=== PATIENT | male | born 1940 | race African-American/Black ===

== ENCOUNTER 2021-10-16 18:43 | Inpatient (IN) | payer MEDICARE, MEDICAID ==
[~2021-10-16] VITALS: Ht 182.9 cm; Wt 75.6 kg
[~2021-10-16 18:43] MED LIST: ACET325T9 PO; ACET325T9 RC; AMLO10TA4 PO; BISA10SU55 RC; CEPH-264 PO; DOCU-109 PO; FOLI1TAB16 PO; GUAI118L3 PO; HALO5TAB PO; MAGN400O7 PO; OXYC5CAP PO; POLY17PO29 PO; SENN-182 PO; THIA100T8 PO; TRAZ-118 PO
--- NOTE | 2021-10-16 18:48 | PHYS DOC ---
Past Medical History Past Medical History: Alcoholism, Dementia, Diabetes-Type II, Hypertension, Other Additional Past Medical Histor: INSOMNIA, vascular problem Past Surgical History: TURP, Other Additional Past Surgical Histo: hernia repair Smoking Status: Current Every Day Smoker Alcohol Use: Sober Drug Use: None, Other (former drug use) General Adult EDM: Chief Complaint: SYNCOPE HPI: HPI: Patient is a 80 year old male brought in by EMS from [facility] for reported episode of unresponsiveness or syncope. I am unable to procure any significantly detailed information from the patient directly. Review of systems is limited secondary to this. I spoke with the nurse at the care facility, she reports that she was helping feed him tonight, and she reports that he "became unresponsive" and appeared to fall asleep, but was still breathing, no cyanosis or apneic episodes, vital signs are stable. She reports that she had a sternal rub him to awaken him. She reports that he is normally quite loud and often yells, though he has been more calm and seemingly more sedated or sleepy recently. She reports that she believes the patient has "given up" in the last several weeks because his daughter recently within the last few weeks. No reported fall or head injury. No witnessed seizure activity. He is normally very confused at baseline. He has a cognitive deficit and speech deficit, at baseline. No known previous history of any cardiac issues or known previous CVA. He is on multiple medications, sedating medications and psychotropic medications. He had not received any as needed sedatives tonight reportedly. Complaint is that he feels like his feet are hurting him, but he admits that this is not new and has been chronic. He denies chest pain, shortness of breath, headache. He denies abdominal pain or nausea or vomiting symptoms. Review of Systems: Review of Systems: Markedly limited review of systems secondary to chronic clinical conditions, see HPI for details. Heart Score: C/O Chest Pain: No Risk Factors: Risk Factors: DM, Current or recent (<one month) smoker, HTN, HLP, family history of CAD, obesity. Risk Scores: Score 0 - 3: 2.5% MACE over next 6 weeks - Discharge Home Score 4 - 6: 20.3% MACE over next 6 weeks - Admit for Clinical Observation Score 7 - 10: 72.7% MACE over next 6 weeks - Early Invasive Strategies Allergies: Allergies: Allergies Coded Allergies Type Severity Reaction Last Updated Verified ibuprofen Allergy Mild GI upset 04/22/14 Yes Physical Exam: PE: Constitutional: Frail, chronically ill-appearing male, resting comfortably, no acute distress. HENT: Normocephalic, atraumatic, oropharynx is patent and clear. No evidence of facial injury or trauma. Mucous membranes are moist. Gag reflex intact. External ears are normal bilaterally. TMs are clear bilaterally. Nares are patent clear without rhinorrhea epistaxis. Eyes: Pupils are small but equal. No scleral icterus. EOMI. no nystagmus. Neck: Normal range of motion, no tenderness, supple, no stridor. Trachea is midline. No meningismus. No step off or midline tenderness. Cardiovascular:Heart rate regular rhythm, +2 radial and +2 dorsalis pedis pulses bilaterally. Lungs & Thorax: Bilateral breath sounds clear to auscultation, no rales, rhonchi or wheezes. Equal chest rise. No distress Abdomen: Abdomen is soft, nondistended, nontender to palpation. No palpable pulsatile mass. No evidence of abdominal trauma or ecchymoses. Skin: Warm, dry, no erythema, no rash. Skin is dry, relatively poor skin turgor. No open wounds. No jaundice Back: Limited range of motion, kyphosis, no deformity. Extremities: No acute limb deformity. No edema. Pelvis is stable. He appears to have bilateral upper and lower extremity flexion contractures. Limited range of motion. No bony tenderness. No evidence of any acute trauma or injury. Neurologic: He is slightly sleepy but awakens easily, opens eyes spontaneously, localizes to pain, no facial asymmetry, speech is slow, content is limited, sensation appears to be grossly intact, he moves all 4 extremities equally, but he does manifest generalized, nonfocal motor weakness in bilateral upper and lower extremities, symmetric flexion contractures. Psychologic: Affect is flat. EKG: EKG: EKG is interpreted at 1956 Rhythm is sinus tachycardia Rate is 102 bpm [place] is left low voltage artifact No STEMI Radiology/Procedures: Radiology/Procedures: IMAGING REPORT Signed PATIENT: NEVIN SHEPARD ACCOUNT: [id number] : 1940 LOCATION: ER AGE: 80 SEX: M EXAM STATUS: PRE ER ORD. PHYSICIAN: EMMA FIGUEROA DO REASON: syncope PROCEDURE: CT HEAD AND CERVICAL SPINE WO CT HEAD AND C-SPINE WO History: Reason: syncope / Spl. Instructions: / History: Comparison: March 10, [address] The cervical spine CT June 19, 2015 Technique: Noncontrast CT imaging was performed of the head and cervical spine. Coronal and sagittal reconstructions were performed. Exposure: One or more of the following individualized dose reduction techniques were utilized for this examination: 1. Automated exposure control 2. Adjustment of the mA and/or kV according to patient size 3. Use of iterative reconstruction technique. Findings: Motion degraded evaluation. Head CT: No intracranial hemorrhage. No mass effect. No hydrocephalus. Moderate brain parenchymal volume loss. Moderate foci of decreased attenuation within the hemispheric white matter, most often due to chronic microvascular ischemia, progressed compared to 2016. Imaged orbits are unremarkable. Imaged paranasal sinuses and mastoid air cells are clear. No acute calvarial fracture. Cervical spine CT: Motion degraded evaluation. Straightening of the cervical spine. No definite acute fracture although motion degrades evaluation for dominant within the lower cervical and upper thoracic spine. 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 Moderate degenerative disc changes most prominent C3-C4 and C4-C5. Moderate canal narrowing C3-C4 and C4-C5 as well as C5-C6. Multilevel neuroforaminal narrowing. Soft tissues unremarkable. Impression: Head CT: 1. Motion degraded evaluation. No definite acute intracranial abnormality. 2. Moderate brain parenchymal volume loss and sequela of chronic microvascular ischemia progressed compared to 2016. Cervical spine CT: 1. Motion degraded evaluation. No definite acute fracture or subluxation of the cervical spine. If persistent clinical concern, recommend repeat imaging. 2. Moderate cervical spondylosis with moderate canal narrowing. 3. Multilevel neuroforaminal narrowing. Electronically signed by: Werner Fontanez DO (10/16/2021 7:38 PM) [facility] DICTATED and SIGNED BY: WERNER FONTANEZ DO DATE: 10/16/211929 IMAGING REPORT Signed PATIENT: NEVIN SHEPARD ACCOUNT: [id number] : 1940 LOCATION: ER AGE: 80 SEX: M EXAM STATUS: PRE ER ORD. PHYSICIAN: EMMA FIGUEROA DO REASON: syncope PROCEDURE: PORTABLE CHEST 1V XR CHEST 1V History: Reason: syncope / Spl. Instructions: / History: Comparison: March 10, 2016 Findings: No consolidation or pleural effusion. Normal heart size. No pneumothorax. Glenohumeral DJD. Impression: 1. No acute cardiopulmonary process. Electronically signed by: Werner Fontanez DO (10/16/2021 7:57 PM) [facility] DICTATED and SIGNED BY: WERNER FONTANEZ DO DATE: 10/16/211955 Course & Med Decision Making: Course & Med Decision Making Pertinent Labs and Imaging studies reviewed. (See chart for details) The findings, differential diagnosis and plan of care discussed with the tejal ent. I tried to call next of kin that was listed on his paperwork, no answer. The patient is given IV Rocephin for treatment of urinary tract infection. I have recommended hospitalization. The patient is comfortable with this. He is resting comfortably, manifest no evidence of distress, has no active complaints at this time. He is accepted for admission by Dr. Prieto. Juan Carlos Disclaimer: Juan Carlos Disclaimer: This electronic medical record was generated, in whole or in part, using a voice recognition dictation system. Departure Departure Impression: Primary Impression: Syncope Additional Impressions: Generalized weakness Urinary tract infection Dementia Disposition: ADMITTED INPATIENT Admitting Physician: PACO (Dr. Prieto) Condition: GUARDED Referrals: KARL JONES MD (PCP) EMMA FIGUEROA DO Oct 16, 2021 18:48
--- NOTE | 2021-10-16 19:40 | RAD ---
CT HEAD AND C-SPINE WO History: Reason: syncope / Spl. Instructions: / History: Comparison: March 10, [address] The cervical spine CT June 19, 2015 Technique: Noncontrast CT imaging was performed of the head and cervical spine. Coronal and sagittal reconstructions were performed. Exposure: One or more of the following individualized dose reduction techniques were utilized for thi s examination: 1. Automated exposure control 2. Adjustment of the mA and/or kV according to patient size 3. Use of iterative reconstruction technique. Findings: Motion degraded evaluation. Head CT: No intracranial hemorrhage. No mass effect. No hydrocephalus. Moderate brain parenchymal volume loss. Moderate foci of decreased attenuation within the hemispheric white matter, most often due to chronic microvascular ischemia, progressed compared to 2016. Imaged orbits are unremarkable. Imaged paranasal sinuses and mastoid air cells are clear. No acute ca lvarial fracture. Cervical spine CT: Motion degraded evaluation. Straightening of the cervical spine. No definite acute fracture although motion degrades evaluation f or dominant within the lower cervical and upper thoracic spine. 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 Moderate degenerative disc changes most prominent C3-C4 a nd C4-C5. Moderate canal narrowing C3-C4 and C4-C5 as well as C5-C6. Multilevel neuroforaminal narrow ing. Soft tissues unremarkable. Impression: Head CT: 1. Motion degraded evaluation. No definite acute intracranial abnormality. 2. Moderate brain parenchymal volume loss and sequela of chronic microvascular ischemia progressed c ompared to 2016. Cervical spine CT: 1. Motion degraded evaluation. No definite acute fracture or subluxation of the cervical spine. If p ersistent clinical concern, recommend repeat imaging. 2. Moderate cervical spondylosis with moderate canal narrowing. 3. Multilevel neuroforaminal narrowing. Electronically signed by: Werner Fontanez DO (10/16/2021 7:38 PM) [facility]
--- NOTE | 2021-10-16 19:59 | RAD ---
XR CHEST 1V History: Reason: syncope / Spl. Instructions: / History: Comparison: March 10, 2016 Findings: No consolidation or pleural effusion. Normal heart size. No pneumothorax. Glenohumeral DJD. Impression: 1. No acute cardiopulmonary process. Electronically signed by: Werner Fontanez DO (10/16/2021 7:57 PM) [facility] [place]
[2021-10-16 20:24] LABS: BASO % 1 % (0-3); EOS # 0.1 x10^3/uL (0.0-0.7); EOS % 1 % (0-3); HEMATOCRIT 36.8 % (39.0-53.0); LYMPH # 2.6 x10^3/uL (1.0-4.8); LYMPH % 42 % (24-48); MEAN CORPUSCULAR HEMOGLOBIN 29 pg (25-35); MEAN CORPUSCULAR HGB CONC 33 g/dL (31-37); MEAN CORPUSCULAR VOLUME 88 fL (79-100); MONO # 0.5 x10^3/uL (0.0-1.1); MONO % 7 % (0-9); NEUT % 49 % (31-73); PLATELET COUNT 120 x10^3/uL (140-400); RED BLOOD COUNT 4.19 x10^6/uL (4.30-5.70); RED CELL DISTRIBUTION WIDTH 14.8 % (11.5-14.5); WHITE BLOOD COUNT 6.2 x10^3/uL (4.0-11.0)
[2021-10-16 20:36] LABS: ANION GAP 9 (6-14); BLOOD UREA NITROGEN 23 mg/dL (8-26); BUN/CREATININE RATIO 16 (6-20); CALCIUM 9.2 mg/dL (8.5-10.1); CARBON DIOXIDE 28 mmol/L (21-32); CHLORIDE 100 mmol/L (98-107); CREATININE 1.4 mg/dL (0.7-1.3); GFR 58.9; GLUCOSE 180 mg/dL (70-99); POTASSIUM 3.7 mmol/L (3.5-5.1); SODIUM 137 mmol/L (136-145)
[2021-10-16 20:44] LABS: BILIRUBIN,URINE NEGATIVE (NEG); CLARITY,URINE HAZY; COLOR,URINE YELLOW; NITRITE,URINE NEGATIVE (NEG); PH,URINE 6.5 (<5.0-8.0); PROTEIN,URINE TRACE mg/dL (NEG-TRACE); UROBILINOGEN,URINE 0.2 mg/dL (0.2 mg/dL)
[2021-10-16 20:46] LABS: ALBUMIN 3.4 g/dL (3.4-5.0); TOTAL PROTEIN 9.2 g/dL (6.4-8.2)
[2021-10-16 20:47] LABS: BACTERIA,URINE FEW /HPF (0-FEW); WBC,URINE 20-40 /HPF (0-4)
[2021-10-16 20:47] LABS: ALBUMIN/GLOBULIN RATIO 0.6 (1.0-1.7); ALK PHOS 92 U/L (46-116); ALT (SGPT) 19 U/L (16-63); AST (SGOT) 26 U/L (15-37); CREATINE KINASE 393 U/L (39-308); MAGNESIUM 1.9 mg/dL (1.8-2.4); TOTAL BILIRUBIN 0.3 mg/dL (0.2-1.0)
[2021-10-16 20:50] LABS: AMPHETAMINE/METHAMPHETAMINE NEG (NEG); BARBITURATES NEG (NEG); BENZODIAZEPINES NEG (NEG); CANNABINOIDS NEG (NEG); COCAINE NEG (NEG); METHADONE NEG (NEG); OPIATES NEG (NEG); PHENCYCLIDINE NEG (NEG)
--- NOTE | 2021-10-16 20:59 | EKG ---
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
[2021-10-16] MEDS ORDERED: cefTRIAXone IV Push 1 GM VIAL. IVP ONE (21:00)
[2021-10-16] MEDS ORDERED: IV NORMAL SALINE 1000ML BAG 1,000 ML IV ONE ×2 (21:15→22:15)
[2021-10-16 21:38] LABS: VAL ACID 144 mcg/mL (50-100)
[2021-10-16] MEDS ORDERED: ACETAMINOPHEN 325 MG TABLET. PO PRN (22:15)
[2021-10-16] MEDS ORDERED: ONDANSETRON PF 4 MG/2 ML VIAL. IVP PRN (22:15)
[2021-10-16 23:38] VITALS: BP 125/68
[2021-10-17] VITALS (7 sets, daily range): BP systolic 108–127; BP diastolic 60–80
[2021-10-17] MEDS ORDERED: MULT-245 PO (01:01)
[2021-10-17] MEDS ORDERED: LORA-434 PO (01:01)
[2021-10-17] MEDS ORDERED: RIVA3CAP15 PO (01:01)
[2021-10-17] MEDS ORDERED: MELA5TAB20 PO (01:01)
[2021-10-17] MEDS ORDERED: MAGN400O7 PO (01:01)
[2021-10-17] MEDS ORDERED: ACET325T21 PO (01:01)
[2021-10-17] MEDS ORDERED: ASCO500C PO (01:01)
[2021-10-17] MEDS ORDERED: RISP1TAB43 PO (01:01)
[2021-10-17] MEDS ORDERED: MAGN400T48 PO (01:01)
[2021-10-17] MEDS ORDERED: ASPI-630 PO (01:01)
[2021-10-17] MEDS ORDERED: OMEP20CA16 PO (01:01)
[2021-10-17] MEDS ORDERED: DIVA125C2 PO (01:01)
[2021-10-17] MEDS ORDERED: HYDR12.58 PO (01:01)
[2021-10-17] MEDS ORDERED: FERR220S16 PO (01:01)
[2021-10-17] MEDS ORDERED: ATOR40TA59 PO (01:01)
[2021-10-17] MEDS ORDERED: POLY17PO29 PO (01:01)
[2021-10-17] MEDS ORDERED: NAPR-683 PO (01:01)
[2021-10-17] MEDS ORDERED: DULO30CA2 PO (01:01)
[2021-10-17] MEDS ORDERED: SENN1TAB62 PO (01:01)
[2021-10-17] MEDS ORDERED: TAMS0.4C97 PO (01:01)
[2021-10-17] MEDS ORDERED: DEXTROSE 50% 25 GM / 50ML DISP.SYRIN. IV PRN (08:00)
[2021-10-17] MEDS ORDERED: SENNOSIDES 8.6 MG TABLET PO PRN (08:00)
[2021-10-17] MEDS ORDERED: ONDANSETRON PF 4 MG/2 ML VIAL. IVP PRN (08:00)
[2021-10-17] MEDS ORDERED: diphenhydrAMINE 50 MG/ML VIAL IVP PRN (08:00)
[2021-10-17] MEDS ORDERED: LORazepam 0.5 MG TABLET PO PRN (08:00)
[2021-10-17] MEDS ORDERED: PROCHLORPERAZINE 10 MG/2 ML VIAL. IV PRN (08:00)
[2021-10-17] MEDS ORDERED: DOCUSATE SODIUM 100 MG CAPSULE. PO PRN (08:00)
[2021-10-17] MEDS ORDERED: ACETAMINOPHEN 325 MG TABLET. PO PRN (08:00)
[2021-10-17] MEDS ORDERED: ZOLPIDEM 5 MG TABLET. PO PRN (08:00)
[2021-10-17] MEDS ORDERED: diphenhydrAMINE HCL 25 MG CAPSULE PO PRN ×2 (08:00)
--- NOTE | 2021-10-17 08:07 | PDOC1 ---
History and Physical Date of Service: DOS: DATE: 10/17/21 TIME: 07:57 Chief Complaint: Chief Complain: Altered mental status. History of Present Illness: HPI: History obtained from discussion with the ED physician and chart review 80 year old male brought in by EMS from [facility] for reported episode of unresponsiveness or syncope. I am unable to procure any significantly detailed information from the patient directly. Review of systems is limited secondary to this. I spoke with the nurse at the care facility, she reports that she was helping feed him tonight, and she reports that he "became unresponsive" and appeared to fall asleep, but was still breathing, no cyanosis or apneic episodes, vital signs are stable. She reports that she had a sternal rub him to awaken him. She reports that he is normally quite loud and often yells, though he has been more calm and seemingly more sedated or sleepy recently. She reports that she believes the patient has "given up" in the last several weeks because his daughter recently within the last few weeks. No reported fall or head injury. No witnessed seizure activity. He is normally very confused at baseline. He has a cognitive deficit and speech deficit, at baseline. No known previous history of any cardiac issues or known previous CVA. He is on multiple medications, sedating medications and psychotropic medications. He had not received any as needed sedatives tonight reportedly. Complaint is that he feels like his feet are hurting him, but he admits that this is not new and has been chronic. He denies chest pain, shortness of breath, headache. He denies abdominal pain or nausea or vomiting symptoms. EKG shows sinus tachycardia at 102 bpm with left axis deviation. No acute ST elevations or depressions. Past Medical/Surgical History: PMH/PSH: Past Medical History: Alcoholism, Dementia, Diabetes-Type II, Hypertension, INSOMNIA, vascular problem Past Surgical History: TURP,hernia repair Allergies: Allergies: Coded Allergies: ibuprofen (Verified Adverse Reaction, Mild, GI upset, 10/17/21) Family History: Family History: Reviewed with no relevant findings in the chart Social History: Social History: Smoking Status: Current Every Day Smoker Alcohol Use: Sober Drug Use: None, Other (former drug use) Current Medications: Current Medications Current Medications Lorazepam (Ativan Inj) 0.5 mg 1X ONCE IVP Last administered on 10/16/21at 20:09; Start 10/16/21 at 20:15; Stop 10/16/21 at 20:16; Status DC Ceftriaxone Sodium (Rocephin) 1 gm 1X ONCE IVP Last administered on 10/16/21at 21:07; Start 10/16/21 at 21:00; Stop 10/16/21 at 21:01; Status DC Sodium Chloride 1,000 ml @ 1,000 mls/hr 1X ONCE IV Last administered on 10/16/21at 21:08; Start 10/16/21 at 21:15; Stop 10/16/21 at 22:14; Status DC Ondansetron HCl (Zofran) 4 mg PRN Q8HRS PRN IVP NAUSEA/VOMITING; Start 10/16/21 at 22:15; Stop 10/17/21 at 22:14 Sodium Chloride 1,000 ml @ 75 mls/hr 1X ONCE IV Last administered on 10/16/21at 23:57; Start 10/16/21 at 22:15; Stop 10/17/21 at 11:34 Acetaminophen (Tylenol) 650 mg PRN Q4HRS PRN PO pain or fever; Start 10/16/21 at 22:15 Active Scripts Active Reported Milk Of Magnesia (Magnesium Hydroxide) 400 Mg/5 Ml Oral.susp 30 Ml PO DAILY PRN Acetaminophen 325 Mg Tablet 2 Tab PO TID 30 Days Miralax (Polyethylene Glycol 3350) 17 Gm Powd.pack 1 Packet PO BID 2 Days dissolve in water Senna Plus Tablet (Sennosides/Docusate Sodium) 1 Each Tablet 1 Tab PO BID 20 Days Magnesium Oxide 400 Mg Tablet 1 Tab PO BID Melatonin 5 Mg Tab.rapdis 1 Tab PO QHS 30 Days Atorvastatin Calcium 40 Mg Tablet 80 Mg PO HS Vitamin C (Ascorbic Acid) 500 Mg Capsule.er 1 Cap PO DAILY 30 Days Flomax (Tamsulosin Hcl) 0.4 Mg Cap.er.24h 1 Cap PO DAILY Multi Vitamin Daily (Multivitamin) 1 Each Tablet 1 Tab PO DAILY 30 Days Ativan (Lorazepam) 1 Mg Tablet 1 Mg PO TID Depakote Sprinkle (Divalproex Sodium) 125 Mg Cap.sprink 4 Cap.sprink PO TID Naprosyn (Naproxen) 500 Mg Tablet 500 Mg PO BID PRN Omeprazole 20 Mg Capsule. 1 Cap PO DAILY Cymbalta (Duloxetine Hcl) 30 Mg Capsule.dr 1 Cap PO DAILY Risperdal (Risperidone) 1 Mg Tablet 1 Mg PO BID Hydrochlorothiazide Tablet (Hydrochlorothiazide) 12.5 Mg Tablet 12.5 Mg PO DAILY HOLD if SBP < 110 Rivastigmine (Rivastigmine Tartrate) 3 Mg Capsule 3 Mg PO BID Aspirin 81 Mg Tab.chew 1 Tab PO DAILY Ferrous Sulfate 220 Mg/5 Ml Solution 7.4 Ml PO DAILY 30 Days ROS: Review of Systems Review of System REVIEW OF SYSTEMS: Limited due to altered mental status Physical Exam: Vital Signs: Vital Signs Date Time Temp Pulse Resp B/P (MAP) Pulse Ox O2 Delivery O2 Flow Rate FiO2 10/17/21 02:40 97.4 76 17 112/62 (79) 98 Room Air 97.4 Physcial Exam: General: Frail, chronically ill-appearing male, resting comfortably, no acute distress. HEENT: Pupils equally round and reactive to light, EOMI, no discharge, normal conjunctiva Neck: Supple, no nuchal rigidity, no JVD, trachea midline, no tenderness Cardiac: RRR, no murmurs, no gallops, no rubs Chest/Lungs: CTAB, no wheeze, no rhonchi, no crackles Abdomen: soft, non-distended, no guarding, no peritoneal signs, non-tender Back: No tenderness Extremities: no edema, pulses intact, non-tender,capillary refill <3 sec bilateral upper and lower extremities, Neuro: Alert and awake but sleepy. No focal deficits. Moves all 4 extremities equally. Nonfocal motor weakness in bilateral upper and lower extremities. Symmetric flexion contraction. Labs: Labs: Laboratory Tests Test 10/16/21 18:15 10/16/21 19:53 10/16/21 20:30 10/17/21 00:45 White Blood Count 6.2 x10^3/uL (4.0-11.0) Red Blood Count 4.19 x10^6/uL (4.30-5.70) Hemoglobin 12.0 g/dL (13.0-17.5) Hematocrit 36.8 % (39.0-53.0) Mean Corpuscular Volume 88 fL (79-100) Mean Corpuscular Hemoglobin 29 pg (25-35) Mean Corpuscular Hemoglobin Concent 33 g/dL (31-37) Red Cell Distribution Width 14.8 % (11.5-14.5) Platelet Count 120 x10^3/uL (140-400) Neutrophils (%) (Auto) 49 % (31-73) Lymphocytes (%) (Auto) 42 % (24-48) Monocytes (%) (Auto) 7 % (0-9) Eosinophils (%) (Auto) 1 % (0-3) Basophils (%) (Auto) 1 % (0-3) Neutrophils # (Auto) 3.0 x10^3/uL (1.8-7.7) Lymphocytes # (Auto) 2.6 x10^3/uL (1.0-4.8) Monocytes # (Auto) 0.5 x10^3/uL (0.0-1.1) Eosinophils # (Auto) 0.1 x10^3/uL (0.0-0.7) Basophils # (Auto) 0.0 x10^3/uL (0.0-0.2) Sodium Level 137 mmol/L (136-145) Potassium Level 3.7 mmol/L (3.5-5.1) Chloride Level 100 mmol/L (98-107) Carbon Dioxide Level 28 mmol/L (21-32) Anion Gap 9 (6-14) Blood Urea Nitrogen 23 mg/dL (8-26) Creatinine 1.4 mg/dL (0.7-1.3) Estimated GFR (Cockcroft-Gault) 58.9 BUN/Creatinine Ratio 16 (6-20) Glucose Level 180 mg/dL (70-99) Calcium Level 9.2 mg/dL (8.5-10.1) Magnesium Level 1.9 mg/dL (1.8-2.4) Total Bilirubin 0.3 mg/dL (0.2-1.0) Aspartate Amino Transf (AST/SGOT) 26 U/L (15-37) Alanine Aminotransferase (ALT/SGPT) 19 U/L (16-63) Alkaline Phosphatase 92 U/L (46-116) Creatine Kinase 393 U/L (39-308) Troponin I High Sensitivity 7 ng/L (4-75) 9 ng/L (4-75) Total Protein 9.2 g/dL (6.4-8.2) Albumin 3.4 g/dL (3.4-5.0) Albumin/Globulin Ratio 0.6 (1.0-1.7) Valproic Acid (Depakene) Level 144 mcg/mL (50-100) Valproic Acid Last Dose Date 10/16/21 Valproic Acid Last Dose Time 0700 Ethyl Alcohol Level < 10 mg/dL (0-10) Glucose (Fingerstick) 176 mg/dL (70-99) Urine Collection Type Unknown Urine Color Yellow Urine Clarity Hazy Urine pH 6.5 (<5.0-8.0) Urine Specific Hedrick 1.020 (1.000-1.030) Urine Protein Trace mg/dL (NEG-TRACE) Urine Glucose (UA) Negative mg/dL (NEG) Urine Ketones (Stick) Negative mg/dL (NEG) Urine Blood Trace (NEG) Urine Nitrite Negative (NEG) Urine Bilirubin Negative (NEG) Urine Urobilinogen Dipstick 0.2 mg/dL (0.2 mg/dL) Urine Leukocyte Esterase Small (NEG) Urine RBC 1-2 /HPF (0-2) Urine WBC 20-40 /HPF (0-4) Urine Squamous Epithelial Cells Few /LPF Urine Bacteria Few /HPF (0-FEW) Urine Mucus Slight /LPF Urine Opiates Screen Neg (NEG) Urine Methadone Screen Neg (NEG) Urine Barbiturates Neg (NEG) Urine Phencyclidine Screen Neg (NEG) Urine Amphetamine/Methamphetamine Neg (NEG) Urine Benzodiazepines Screen Neg (NEG) Urine Cocaine Screen Neg (NEG) Urine Cannabinoids Screen Neg (NEG) Urine Ethyl Alcohol Neg (NEG) Test 10/17/21 03:00 Troponin I High Sensitivity 8 ng/L (4-75) Laboratory Tests Test 10/16/21 18:15 10/16/21 19:53 10/16/21 20:30 10/17/21 00:45 White Blood Count 6.2 x10^3/uL (4.0-11.0) Red Blood Count 4.19 x10^6/uL (4.30-5.70) Hemoglobin 12.0 g/dL (13.0-17.5) Hematocrit 36.8 % (39.0-53.0) Mean Corpuscular Volume 88 fL (79-100) Mean Corpuscular Hemoglobin 29 pg (25-35) Mean Corpuscular Hemoglobin Concent 33 g/dL (31-37) Red Cell Distribution Width 14.8 % (11.5-14.5) Platelet Count 120 x10^3/uL (140-400) Neutrophils (%) (Auto) 49 % (31-73) Lymphocytes (%) (Auto) 42 % (24-48) Monocytes (%) (Auto) 7 % (0-9) Eosinophils (%) (Auto) 1 % (0-3) Basophils (%) (Auto) 1 % (0-3) Neutrophils # (Auto) 3.0 x10^3/uL (1.8-7.7) Lymphocytes # (Auto) 2.6 x10^3/uL (1.0-4.8) Monocytes # (Auto) 0.5 x10^3/uL (0.0-1.1) Eosinophils # (Auto) 0.1 x10^3/uL (0.0-0.7) Basophils # (Auto) 0.0 x10^3/uL (0.0-0.2) Sodium Level 137 mmol/L (136-145) Potassium Level 3.7 mmol/L (3.5-5.1) Chloride Level 100 mmol/L (98-107) Carbon Dioxide Level 28 mmol/L (21-32) Anion Gap 9 (6-14) Blood Urea Nitrogen 23 mg/dL (8-26) Creatinine 1.4 mg/dL (0.7-1.3) Estimated GFR (Cockcroft-Gault) 58.9 BUN/Creatinine Ratio 16 (6-20) Glucose Level 180 mg/dL (70-99) Calcium Level 9.2 mg/dL (8.5-10.1) Magnesium Level 1.9 mg/dL (1.8-2.4) Total Bilirubin 0.3 mg/dL (0.2-1.0) Aspartate Amino Transf (AST/SGOT) 26 U/L (15-37) Alanine Aminotransferase (ALT/SGPT) 19 U/L (16-63) Alkaline Phosphatase 92 U/L (46-116) Creatine Kinase 393 U/L (39-308) Troponin I High Sensitivity 7 ng/L (4-75) 9 ng/L (4-75) Total Protein 9.2 g/dL (6.4-8.2) Albumin 3.4 g/dL (3.4-5.0) Albumin/Globulin Ratio 0.6 (1.0-1.7) Valproic Acid (Depakene) Level 144 mcg/mL (50-100) Valproic Acid Last Dose Date 10/16/21 Valproic Acid Last Dose Time 0700 Ethyl Alcohol Level < 10 mg/dL (0-10) Glucose (Fingerstick) 176 mg/dL (70-99) Urine Collection Type Unknown Urine Color Yellow Urine Clarity Hazy Urine pH 6.5 (<5.0-8.0) Urine Specific Hedrick 1.020 (1.000-1.030) Urine Protein Trace mg/dL (NEG-TRACE) Urine Glucose (UA) Negative mg/dL (NEG) Urine Ketones (Stick) Negative mg/dL (NEG) Urine Blood Trace (NEG) Urine Nitrite Negative (NEG) Urine Bilirubin Negative (NEG) Urine Urobilinogen Dipstick 0.2 mg/dL (0.2 mg/dL) Urine Leukocyte Esterase Small (NEG) Urine RBC 1-2 /HPF (0-2) Urine WBC 20-40 /HPF (0-4) Urine Squamous Epithelial Cells Few /LPF Urine Bacteria Few /HPF (0-FEW) Urine Mucus Slight /LPF Urine Opiates Screen Neg (NEG) Urine Methadone Screen Neg (NEG) Urine Barbiturates Neg (NEG) Urine Phencyclidine Screen Neg (NEG) Urine Amphetamine/Methamphetamine Neg (NEG) Urine Benzodiazepines Screen Neg (NEG) Urine Cocaine Screen Neg (NEG) Urine Cannabinoids Screen Neg (NEG) Urine Ethyl Alcohol Neg (NEG) Test 10/17/21 03:00 Troponin I High Sensitivity 8 ng/L (4-75) Images: Images PROCEDURE: PORTABLE CHEST 1V XR CHEST 1V History: Reason: syncope / Spl. Instructions: / History: Comparison: March 10, 2016 Findings: No consolidation or pleural effusion. Normal heart size. No pneumothorax. Glenohumeral DJD. Impression: 1. No acute cardiopulmonary process. PROCEDURE: CT HEAD AND CERVICAL SPINE WO CT HEAD AND C-SPINE WO History: Reason: syncope / Spl. Instructions: / History: Comparison: March 10, [address] The cervical spine CT June 19, 2015 Technique: Noncontrast CT imaging was performed of the head and cervical spine. Coronal and sagittal reconstructions were performed. Exposure: One or more of the following individualized dose reduction techniques were utilized for this examination: 1. Automated exposure control 2. Adjustment of the mA and/or kV according to patient size 3. Use of iterative reconstruction technique. Findings: Motion degraded evaluation. Head CT: No intracranial hemorrhage. No mass effect. No hydrocephalus. Moderate brain parenchymal volume loss. Moderate foci of decreased attenuation within the hemispheric white matter, most often due to chronic microvascular ischemia, progressed compared to 2016. Imaged orbits are unremarkable. Imaged paranasal sinuses and mastoid air cells are clear. No acute calvarial fracture. Cervical spine CT: Motion degraded evaluation. Straightening of the cervical spine. No definite acute fracture although motion degrades evaluation for dominant within the lower cervical and upper thoracic spine. 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 Moderate degenerative disc changes most prominent C3-C4 and C4-C5. Moderate canal narrowing C3-C4 and C4-C5 as well as C5-C6. Multilevel neuroforaminal narrowing. Soft tissues unremarkable. Impression: Head CT: 1. Motion degraded evaluation. No definite acute intracranial abnormality. 2. Moderate brain parenchymal volume loss and sequela of chronic microvascular ischemia progressed compared to 2016. Assessment/Plan Assessment/Plan Acute metabolic/infectious encephalopathy Acute UTI Near syncope GHAZALA due to vasomotor nephropathy Mild rhabdomyolysis Thrombocytopenia Dementia Admit to hospitalist service for further management Orthostatic vital signs Continue empiric IV antibiotics Pending urine culture Fall precautions Continue telemetry monitoring Avoid nephrotoxic agents Strict I/O Temporary hold on all centrally acting medications Pending B12 and TSH levels to evaluate for thrombocytopenia Lovenox for DVT prophylaxis ADA diet CODE STATUS full Discussed with RN and SW Disposition inpatient management as above DPOA: Daughter Justifications for Admission Other Justification AVELINA GARCÍA MD Oct 17, 2021 08:07
[2021-10-17] MEDS: IV NORMAL SALINE 1000ML BAG 1,000 ML IV SCH ×2 (09:42→20:25)
[2021-10-17] MEDS: TAMSULOSIN 0.4 MG CAP.ER.24H. PO SCH (09:42)
[2021-10-17] MEDS: MAGNESIUM OXIDE 400 MG TABLET PO SCH ×2 (09:42→20:23)
[2021-10-17] MEDS: PANTOPRAZOLE 40 MG TABLET.DR. PO SCH (09:42)
[2021-10-17] MEDS: risperiDONE 1 MG TABLET. PO SCH ×2 (09:42→20:23)
[2021-10-17] MEDS: ASPIRIN CHEWABLE 81 MG TABLET. PO SCH (09:43)
[2021-10-17] MEDS: ASCORBIC ACID 500 MG TABLET PO SCH (09:43)
[2021-10-17] MEDS: SENNOSIDES/DOCUSATE 8.6/50MG TABLET. PO SCH ×2 (09:45→20:23)
[2021-10-17] MEDS: ENOXAPARIN 30 MG/0.3 ML SYRINGE. SQ SCH (09:50)
[2021-10-17 10:19] LABS: BASO % 0 % (0-3); EOS % 1 % (0-3); HEMATOCRIT 34.2 % (39.0-53.0); HEMOGLOBIN 11.2 g/dL (13.0-17.5); LYMPH # 2.1 x10^3/uL (1.0-4.8); LYMPH % 29 % (24-48); MEAN CORPUSCULAR HEMOGLOBIN 28 pg (25-35); MEAN CORPUSCULAR HGB CONC 33 g/dL (31-37); MEAN CORPUSCULAR VOLUME 87 fL (79-100); MONO # 0.4 x10^3/uL (0.0-1.1); MONO % 6 % (0-9); NEUT # 4.5 x10^3/uL (1.8-7.7); NEUT % 63 % (31-73); PLATELET COUNT 129 x10^3/uL (140-400); RED BLOOD COUNT 3.94 x10^6/uL (4.30-5.70)
[2021-10-17 10:26] LABS: CALCIUM 8.5 mg/dL (8.5-10.1); CREATININE 1.3 mg/dL (0.7-1.3); GFR 64.1; MAGNESIUM 1.7 mg/dL (1.8-2.4); POTASSIUM 4.1 mmol/L (3.5-5.1)
[2021-10-17] MEDS: LACTOBACILLUS RHAMNOSUS GG 1 CAPSULE. PO SCH (20:23)
[2021-10-17] MEDS: cefTRIAXone IV Push 1 GM VIAL. IVP SCH (20:23)
[2021-10-18 03:00] VITALS: BP 96/63
[2021-10-18] MEDS: IV NORMAL SALINE 1000ML BAG 1,000 ML IV SCH ×3 (04:00→19:52)
[2021-10-18 07:00] VITALS: BP 89/41
[2021-10-18] MEDS: PANTOPRAZOLE 40 MG TABLET.DR. PO SCH (07:23)
[2021-10-18 07:25] LABS: CALCIUM 8.1 mg/dL (8.5-10.1); CREATININE 1.4 mg/dL (0.7-1.3); GFR 58.9; MAGNESIUM 1.8 mg/dL (1.8-2.4); PHOSPHORUS 2.9 mg/dL (2.6-4.7); POTASSIUM 3.9 mmol/L (3.5-5.1)
[2021-10-18 07:27] LABS: BASO % 0 % (0-3); EOS % 0 % (0-3); HEMOGLOBIN 10.5 g/dL (13.0-17.5); LYMPH # 2.4 x10^3/uL (1.0-4.8); LYMPH % 40 % (24-48); MEAN CORPUSCULAR HEMOGLOBIN 29 pg (25-35); MEAN CORPUSCULAR HGB CONC 33 g/dL (31-37); MEAN CORPUSCULAR VOLUME 87 fL (79-100); MONO # 0.4 x10^3/uL (0.0-1.1); MONO % 7 % (0-9); NEUT # 3.2 x10^3/uL (1.8-7.7); NEUT % 53 % (31-73); PLATELET COUNT 122 x10^3/uL (140-400); RED BLOOD COUNT 3.69 x10^6/uL (4.30-5.70); RED CELL DISTRIBUTION WIDTH 14.7 % (11.5-14.5); WHITE BLOOD COUNT 6.1 x10^3/uL (4.0-11.0)
[2021-10-18] MEDS: ASCORBIC ACID 500 MG TABLET PO SCH (08:00)
[2021-10-18] MEDS: LACTOBACILLUS RHAMNOSUS GG 1 CAPSULE. PO SCH ×2 (08:00→21:11)
[2021-10-18] MEDS: TAMSULOSIN 0.4 MG CAP.ER.24H. PO SCH (08:00)
[2021-10-18] MEDS: ENOXAPARIN 30 MG/0.3 ML SYRINGE. SQ SCH (08:01)
[2021-10-18] MEDS: ASPIRIN CHEWABLE 81 MG TABLET. PO SCH (08:01)
[2021-10-18] MEDS: risperiDONE 1 MG TABLET. PO SCH ×2 (08:01→21:11)
[2021-10-18] MEDS: MAGNESIUM OXIDE 400 MG TABLET PO SCH ×2 (08:01→21:11)
[2021-10-18] MEDS: SENNOSIDES/DOCUSATE 8.6/50MG TABLET. PO SCH ×2 (09:00→21:11)
--- NOTE | 2021-10-18 09:47 | NUR ---
SW following. Discussed with RN. 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 PCR COVID requested for return to assisted. Wound care following. JOB faxed updates to facility. SW will continue to follow.
[2021-10-18 10:27] VITALS: BP 97/52
--- NOTE | 2021-10-18 11:30 | PDOC ---
[employer] PROGRESS NOTE Date of Service DOS: DATE: 10/18/21 TIME: 11:29 Chief Complaint Chief Complaint Assessment/Plan Acute metabolic/infectious encephalopathy Acute UTI, with urine cultures positive for Proteus mirabilis Near syncope GHAZALA due to vasomotor nephropathy Mild rhabdomyolysis Thrombocytopenia Dementia Admit to hospitalist service for further management Orthostatic vital signs Continue empiric IV antibiotics Pending urine culture sensitivities Fall precautions Continue telemetry monitoring Avoid nephrotoxic agents Strict I/O Temporary hold on all centrally acting medications Pending B12 and TSH levels to evaluate for thrombocytopenia Lovenox for DVT prophylaxis ADA diet CODE STATUS full Discussed with RN and SW Disposition inpatient management as above DPOA: Daughter History of Present Illness History of Present Illness 80 year old male brought in by EMS from [facility] and rehab facility for reported episode of unresponsiveness or syncope. I am unable to procure any significantly detailed information from the patient directly. Review of systems is limited secondary to this. I spoke with the nurse at the care facility, she reports that she was helping feed him tonight, and she reports that he "became unresponsive" and appeared to fall asleep, but was still breathing, no cyanosis or apneic episodes, vital signs are stable. She reports that she had a sternal rub him to awaken him. She reports that he is normally quite loud and often yells, though he has been more calm and seemingly more sedated or sleepy recently. She reports that she believes the patient has "given up" in the last several weeks because his daughter recently within the last few weeks. No reported fall or head injury. No witnessed seizure activity. He is normally very confused at baseline. He has a cognitive deficit and speech deficit, at baseline. No known previous history of any cardiac issues or known previous CVA. He is on multiple medications, sedating medications and psychotropic medications. He had not received any as needed sedatives tonight reportedly. Complaint is that he feels like his feet are hurting him, but he admits that this is not new and has been chronic. He denies chest pain, shortness of breath, headache. He denies abdominal pain or nausea or vomiting symptoms. EKG shows sinus tachycardia at 102 bpm with left axis deviation. No acute ST elevations or depressions. 10/18/2021 No acute events overnight. Patient seen examined bedside. Patient not responding to my questions and nonverbal. Likely due to his dementia. Pending PT OT evaluation. Patient's chart, labs, images were reviewed and discussed with RN Vitals/I&O Vitals/I&O: Vital Signs Date Time Temp Pulse Resp B/P (MAP) Pulse Ox O2 Delivery O2 Flow Rate FiO2 10/18/21 10:27 97.9 86 18 97/52 (67) 98 Room Air 97.9 I & O 10/17/21 10/17/21 10/18/21 15:00 23:00 07:00 Intake Total 360 ml Balance 360 ml Physical Exam General: Alert Heart: Regular rate Lungs: Clear Abdomen: Normal bowel sounds Extremities: No clubbing Skin: No rashes Labs Labs: Laboratory Tests Test 10/17/21 16:27 10/17/21 20:40 10/18/21 06:25 10/18/21 07:21 Glucose (Fingerstick) 160 mg/dL (70-99) 161 mg/dL (70-99) 107 mg/dL (70-99) White Blood Count 6.1 x10^3/uL (4.0-11.0) Red Blood Count 3.69 x10^6/uL (4.30-5.70) Hemoglobin 10.5 g/dL (13.0-17.5) Hematocrit 32.0 % (39.0-53.0) Mean Corpuscular Volume 87 fL (79-100) Mean Corpuscular Hemoglobin 29 pg (25-35) Mean Corpuscular Hemoglobin Concent 33 g/dL (31-37) Red Cell Distribution Width 14.7 % (11.5-14.5) Platelet Count 122 x10^3/uL (140-400) Neutrophils (%) (Auto) 53 % (31-73) Lymphocytes (%) (Auto) 40 % (24-48) Monocytes (%) (Auto) 7 % (0-9) Eosinophils (%) (Auto) 0 % (0-3) Basophils (%) (Auto) 0 % (0-3) Neutrophils # (Auto) 3.2 x10^3/uL (1.8-7.7) Lymphocytes # (Auto) 2.4 x10^3/uL (1.0-4.8) Monocytes # (Auto) 0.4 x10^3/uL (0.0-1.1) Eosinophils # (Auto) 0.0 x10^3/uL (0.0-0.7) Basophils # (Auto) 0.0 x10^3/uL (0.0-0.2) Sodium Level 137 mmol/L (136-145) Potassium Level 3.9 mmol/L (3.5-5.1) Chloride Level 104 mmol/L (98-107) Carbon Dioxide Level 25 mmol/L (21-32) Anion Gap 8 (6-14) Blood Urea Nitrogen 16 mg/dL (8-26) Creatinine 1.4 mg/dL (0.7-1.3) Estimated GFR (Cockcroft-Gault) 58.9 Glucose Level 110 mg/dL (70-99) Calcium Level 8.1 mg/dL (8.5-10.1) Phosphorus Level 2.9 mg/dL (2.6-4.7) Magnesium Level 1.8 mg/dL (1.8-2.4) Test 10/18/21 11:17 Glucose (Fingerstick) 119 mg/dL (70-99) Assessment and Plan Assessmemt and Plan Problems Medical Problems: (1) Dementia Status: Acute (2) Generalized weakness Status: Acute (3) Syncope Status: Acute (4) Urinary tract infection Status: Acute Comment Review of Relevant I have reviewed the following items moose (where applicable) has been applied. Medications: Current Medications Medications (Trade) Dose Ordered Sig/Malena Route PRN Reason Start Time Stop Time Status Last Admin Dose Admin Ceftriaxone Sodium (Rocephin) 1 gm Q24H IVP 10/17/21 21:00 10/17/21 20:23 Lactobacillus Rhamnosus (Culturelle) 1 cap BID PO 10/17/21 21:00 10/18/21 08:00 Justifications for Admission Other Justification COPD and near syncope AVELINA GARCÍA MD Oct 18, 2021 11:30
[2021-10-18 14:57] VITALS: BP 115/61
[2021-10-18 19:00] VITALS: BP 128/72
[2021-10-18] MEDS: cefTRIAXone IV Push 1 GM VIAL. IVP SCH (21:11)
[2021-10-18] MEDS ORDERED: MORPHINE SULFATE 2 MG/ML INJ. IVP PRN (22:45)
[2021-10-18 23:00] VITALS: BP 134/82
[2021-10-19 03:30] VITALS: BP 96/49
[2021-10-19] MEDS: IV NORMAL SALINE 1000ML BAG 1,000 ML IV SCH (06:05)
[2021-10-19 07:00] VITALS: BP 94/50
[2021-10-19] MEDS: PANTOPRAZOLE 40 MG TABLET.DR. PO SCH (07:16)
[2021-10-19 07:42] LABS: BASO % 0 % (0-3); EOS # 0.1 x10^3/uL (0.0-0.7); EOS % 1 % (0-3); HEMATOCRIT 31.8 % (39.0-53.0); HEMOGLOBIN 10.5 g/dL (13.0-17.5); LYMPH # 2.4 x10^3/uL (1.0-4.8); LYMPH % 42 % (24-48); MEAN CORPUSCULAR HEMOGLOBIN 29 pg (25-35); MEAN CORPUSCULAR HGB CONC 33 g/dL (31-37); MEAN CORPUSCULAR VOLUME 86 fL (79-100); MONO # 0.5 x10^3/uL (0.0-1.1); MONO % 8 % (0-9); NEUT # 2.8 x10^3/uL (1.8-7.7); NEUT % 49 % (31-73); PLATELET COUNT 130 x10^3/uL (140-400); RED BLOOD COUNT 3.69 x10^6/uL (4.30-5.70); WHITE BLOOD COUNT 5.7 x10^3/uL (4.0-11.0)
[2021-10-19 07:44] LABS: CALCIUM 8.2 mg/dL (8.5-10.1); CREATININE 1.3 mg/dL (0.7-1.3); GFR 64.1; MAGNESIUM 1.8 mg/dL (1.8-2.4); POTASSIUM 3.9 mmol/L (3.5-5.1)
[2021-10-19] MEDS: risperiDONE 1 MG TABLET. PO SCH (07:59)
[2021-10-19] MEDS: TAMSULOSIN 0.4 MG CAP.ER.24H. PO SCH (07:59)
[2021-10-19] MEDS: ASPIRIN CHEWABLE 81 MG TABLET. PO SCH (07:59)
[2021-10-19] MEDS: MAGNESIUM OXIDE 400 MG TABLET PO SCH (07:59)
[2021-10-19] MEDS: SENNOSIDES/DOCUSATE 8.6/50MG TABLET. PO SCH (07:59)
[2021-10-19] MEDS: LACTOBACILLUS RHAMNOSUS GG 1 CAPSULE. PO SCH (07:59)
[2021-10-19] MEDS: ASCORBIC ACID 500 MG TABLET PO SCH (07:59)
[2021-10-19] MEDS: ENOXAPARIN 30 MG/0.3 ML SYRINGE. SQ SCH (08:00)
[2021-10-19] MEDS ORDERED: MULTIVITAMIN I-VITE TABLET. PO SCH (09:00)
--- NOTE | 2021-10-19 12:00 | SNU/HH DC ---
DISCHARGE ORDERS DISCHARGE INFORMATION: DISCHARGE DATE: Oct 19, 2021 FINAL DIAGNOSIS Problems Medical Problems: (1) Dementia Status: Acute (2) Generalized weakness Status: Acute (3) Syncope Status: Acute (4) Urinary tract infection Status: Acute CONDITION ON DISCHARGE: Guarded CODE STATUS: Code Status: DNR/DNI POST DISCHARGE ORDERS: ACTIVITY ORDERS: Resume previous activity WEIGHT BEARING STATUS: As tolerated DIET AFTER DISCHARGE: Cardiac CHECKS AFTER DISCHARGE: CHECKS AFTER DISCHARGE: Check blood press - daily, Check your Temp as needed, Weigh Yourself Daily FOLLOW-UP: PHYSICIAN FOLLOW-UP: PCP within 2 weeks of discharge ADDITIONAL FOLLOW-UP: PT OT as needed LAB ORDERS FOR FOLLOW-UP: CBC, CMP Additional Instructions: Daily orthostatic vital signs TREATMENT/EQUIPMENT ORDERS: Physical Therapy For: Evalulation/Treatment Occupational Therapy For: Evaluation/Treatment DISCHARGE MEDICATIONS: Home Meds Reported Medications Magnesium Hydroxide (MILK OF MAGNESIA) 400 Mg/5 Ml Oral.susp, 30 ML PO DAILY PRN for constipation, MISC 10/17/21 Acetaminophen (ACETAMINOPHEN) 325 Mg Tablet, 2 TAB PO TID for pain for 30 Days, #30 TAB 0 Refills 10/17/21 Polyethylene Glycol 3350 (MIRALAX) 17 Gm Powd.pack, 1 PACKET PO BID for constipation for 2 Days, #4 PACKET 0 Refills dissolve in water 10/17/21 Sennosides/Docusate Sodium (SENNA PLUS TABLET) 1 Each Tablet, 1 TAB PO BID for bowel regulation for 20 Days, #40 TAB 0 Refills 10/17/21 Magnesium Oxide (MAGNESIUM OXIDE) 400 Mg Tablet, 1 TAB PO BID for supplement, #60 TAB 5 Refills 10/17/21 Melatonin (MELATONIN) 5 Mg Tab.rapdis, 1 TAB PO QHS for sleep for 30 Days, #30 TAB 0 Refills 10/17/21 Atorvastatin Calcium (ATORVASTATIN CALCIUM) 40 Mg Tablet, 80 MG PO HS for FOR CHOLESTEROL, #30 TAB 0 Refills 10/17/21 Ascorbic Acid (VITAMIN C) 500 Mg Capsule.er, 1 CAP PO DAILY for supplement for 30 Days, #30 CAP 0 Refills 10/17/21 Tamsulosin Hcl (FLOMAX) 0.4 Mg Cap.er.24h, 1 CAP PO DAILY for BPH, #30 CAP 11 Refills 10/17/21 Multivitamin (MULTI VITAMIN DAILY) 1 Each Tablet, 1 TAB PO DAILY for supplemnt for 30 Days, #30 TAB 0 Refills 10/17/21 Lorazepam (ATIVAN) 1 Mg Tablet, 1 MG PO TID for anxiety, TAB 10/17/21 Divalproex Sodium (DEPAKOTE SPRINKLE) 125 Mg Cap.sprink, 4 CAP.SPRINK PO TID for dementia with behavioral distu, EACH 10/17/21 Naproxen (NAPROSYN) 500 Mg Tablet, 500 MG PO BID PRN for joint pain, TAB 10/17/21 Omeprazole (OMEPRAZOLE) 20 Mg Capsule.dr, 1 CAP PO DAILY for GERD, #30 CAP 5 Refills 10/17/21 Duloxetine Hcl (CYMBALTA) 30 Mg Capsule.dr, 1 CAP PO DAILY for anxiety, #30 CAP 5 Refills 10/17/21 Risperidone (RISPERDAL) 1 Mg Tablet, 1 MG PO BID for MOOD STABILIZER, TAB 10/17/21 Hydrochlorothiazide (HYDROCHLOROTHIAZIDE TABLET) 12.5 Mg Tablet, 12.5 MG PO DAILY for DIURETIC, TAB 0 Refills HOLD if SBP < 110 10/17/21 Rivastigmine Tartrate (RIVASTIGMINE) 3 Mg Capsule, 3 MG PO BID for DEMENTIA, CAP 10/17/21 Aspirin (ASPIRIN) 81 Mg Tab.chew, 1 TAB PO DAILY for heart health, #30 TAB 3 Refills 10/17/21 Ferrous Sulfate (FERROUS SULFATE) 220 Mg/5 Ml Solution, 7.4 ML PO DAILY for supplement for 30 Days, #150 ML 0 Refills 10/17/21 AVELINA GARCÍA MD Oct 19, 2021 12:00
--- NOTE | 2021-10-19 13:33 | NUR ---
JOB following. Discussed with RN, discharge orders faxed to Yasir Torres ([facility]), awaiting stretcher transportation time. RN notified. JOB will continue to follow. Addendum: 10/19/21 at 1356 by MYESHA [facility] Transportation arranged by Yasir for 1829. RN notified.
[2021-10-19 14:53] VITALS: BP 85/57
--- NOTE | 2021-10-19 17:14 | NUR ---
Wound/Ostomy Care Wound Type/Assessment: Patient seen per wound care consult. See wound assessment. 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 Wounds cleansed, assessed, measured, and pictured. The heels are slough covered and would benefit from therahoney gel to help with debridement. The scrotum is superficial and should heal shortly. Treatment Recommendations/Plan: Recommendations for therahoney gel applied to contact layer and then applied to wound bed and cover with foam dressing. Change on Monday and Monday. Honey left in room as well as extra contact layer. Calazime cream applied to scrotum and coccyx and patient's brief changed as this time as well. Dressings applied. Education provided: Patient educated on POC and wound care. Offloading surface/device: Patient repositioned to the left side using wedge and bilateral heels floated using pillows. Heel medix ordered bilaterally for this patient. Recommended Referrals/Tests: N/A Discharge Recommendations for dressings: Dressing change instructions left in room. No other wounds noted. Honey gel and contact layer left in room as well. Wound care will follow up on 10/27/21.
== END 2021-10-19 19:30 | DRG 682 ==
LOC: ER 18:43 → 5 NORTH 21:09
PROVIDERS: ADMIT Internal Medicine; ATTEND Internal Medicine
DX: N17.0 Acute kidney failure with tubular necrosis (principal); G93.41 Metabolic encephalopathy; N39.0 Urinary tract infection, site not specified; M62.82 Rhabdomyolysis; D69.6 Thrombocytopenia, unspecified; E11.9 Type 2 diabetes mellitus without complications; F03.90 Unspecified dementia, unspecified severity, without behavioral disturbance, psychotic disturbance, mood disturbance, and anxiety; F17.200 Nicotine dependence, unspecified, uncomplicated; B96.4 Proteus (mirabilis) (morganii) as the cause of diseases classified elsewhere; I10 Essential (primary) hypertension; M19.019 Primary osteoarthritis, unspecified shoulder; F10.20 Alcohol dependence, uncomplicated; Y90.9 Presence of alcohol in blood, level not specified; G47.00 Insomnia, unspecified; Z88.6 Allergy status to analgesic agent; Z20.822 Contact with and (suspected) exposure to COVID-19
CPT/HCPCS: 36415; 70450; 71045; 72125; 80048; 80053; 80164; 80307; 81001; 82550; 82607; 82962; 83735; 84100; 84443; 84484; 85025; 87077; 87086; 87186; 93005; 96374; G0480; J0696; J1650; J2060; J2270; J7030; U0003; 99285-25; G0378